=== PATIENT | male | born 1955 | race Caucasian/White ===

== ENCOUNTER 2022-09-11 08:51 | Outpatient (OUT) | payer MEDICARE, OTHER, SELFPAY ==
[2022-09-11 10:36] VITALS: BMI 32.1
== END 2022-09-11 08:52 | disposition home or self-care (01) ==
LOC: MN 08:59
PROVIDERS: Visit Provider Urology
DX: Z71.3 Dietary counseling and surveillance (principal); R81 Glycosuria; Z86.39 Personal history of other endocrine, nutritional and metabolic disease
CPT/HCPCS: 97804; S9470